=== PATIENT | male | born 1975 | race Caucasian/White ===

== ENCOUNTER 2020-07-31 08:20 | Emergency (ER) | payer OTHER ==
[2020-07-31] MEDS ORDERED: HYDROmorphone 0.5 MG/0.5 ML Syringe IM ONE (08:42)
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
--- NOTE | 2020-07-31 09:11 | CR ---
Hand Comp Min 3V Lt CLINICAL HISTORY: Contusion, trauma FINDINGS: There is no acute fracture or dislocation of the hand. No foreign body is seen. Impression: Negative
[2020-07-31] MEDS ORDERED: Acetaminophen/oxyCODONE 325-5 MG Tab PO ONE (09:21)
[2020-07-31] MEDS ORDERED: Ondansetron 4 MG Tab.DIS PO ONE (09:21)
--- NOTE | 2020-07-31 10:29 | CR ---
Forearm 2V Lt CLINICAL HISTORY: Pain FINDINGS: There is no acute fracture within the forearm. IMPRESSION: Negative left forearm.
== END 2020-07-31 10:19 | disposition home or self-care (01) ==
LOC: JP.ED 08:20
DX: S60.222A Contusion of left hand, initial encounter (principal); W22.8XXA Striking against or struck by other objects, initial encounter; Y92.814 Boat as the place of occurrence of the external cause
CPT/HCPCS: 73090; 73130; 96372; 99283; A9270; J1170